=== PATIENT | female | born 1960 | race Caucasian/White ===

== ENCOUNTER 2017-05-24 20:47 | Emergency (ER) | payer BC, OTHER ==
[2017-05-24] MEDS ORDERED: Ibuprofen TAB* 600 MG PO ONE (20:53)
[2017-05-24] MEDS ORDERED: NS 0.9% 1000 ML* 1,000 ML IV ONE (21:24)
[2017-05-24] MEDS ORDERED: Clindamycin CAP* 150 MG PO ONE (21:25)
--- NOTE | 2017-05-24 21:39 | UC ---
angie Lyons Timothy, scribed for Velma Johnson MD on 05/24/17 at 2121 . HPI Febrile Illness - HPI Summary HPI Summary: Claribel Heart is a 56 yo female presenting to [facility] with fever for the past 30 hours with 7/10 myalgia, fatigue, and 2 bug bites behind her left knee which has increased erythema. Pt states bites present x 2-3 days. Pt states starting yesterday had fatiigue and body aches. Pt reports tactile temp today. No analgesia, antipyretic taken. Pt denies cp, sob, N/V, changes in urine. She notes her has MRSA. Pt denies known tick exposure. Her MHx includes cholecystectomy. Pt medication list reviewed this visit. - History of Current Complaint Chief Complaint: UCGeneralIllness Time Seen by Provider: 05/24/17 21:13 Hx Obtained From: Patient Onset/Duration: Started Days Ago - yesterday - bite 2-3 days ago, Still Present Timing: Constant Temperature: 103.5 F Initial Severity: Moderate Current Severity: Moderate Pain Intensity: 7 Pain Scale Used: 0-10 Numeric Associated Signs and Symptoms: Headache, Myalgia, Other: - bug bites - Allergy/Home Medications Allergies/Adverse Reactions: Allergies Allergy/AdvReac Type Severity Reaction Status Date / Time Diphenhydramine Allergy See Comment Verified 05/24/17 20:54 [From Benadryl] Home Medications: Home Medications Calcium 500 mg PO 05/24/17 [History] Multiple Vitamin [Multivitamins] 1 cap PO 05/24/17 [History] PMH/Surg Hx/FS Hx/Imm Hx Previously Healthy: Yes - Surgical History Surgery Procedure, Year, and Place: GB REMOVED Infectious Disease History: No - with MRSA Infectious Disease History: Denies: Traveled Outside the [place] in Last 30 Days - Family History Known Family History: Positive: Cardiac Disease, Hypertension Negative: Diabetes - Social History Occupation: Employed Full-time Lives: With Family Alcohol Use: Rare Substance Use Type: Reports: None Smoking Status (MU): Never Smoked Tobacco Review of Systems Constitutional: Fever, Fatigue Skin: Other - erythema posterior left knee s/p insect bites Eyes: Negative ENT: Negative Respiratory: Negative Cardiovascular: Negative Gastrointestinal: Negative Genitourinary: Negative Motor: Negative Neurovascular: Negative Musculoskeletal: Myalgia Neurological: Headache Psychological: Negative All Other Systems Reviewed And Are Negative: Yes Physical Exam Triage Information Reviewed: Yes Appearance: Well-Appearing - A+Ox3 tired appearing appropriate, No Pain Distress , Well-Nourished Vital Signs: Initial Vital Signs Temp 103.5 F 05/24/17 20:51 Pulse 114 05/24/17 20:51 Resp 18 05/24/17 20:51 BP 182/99 05/24/17 20:51 Pulse Ox 98 05/24/17 20:51 Vital Signs Reviewed: Yes Eye Exam: Normal ENT Exam: Normal ENT: Positive: Normal ENT inspection, Hearing grossly normal, Pharynx normal, TMs normal Dental Exam: Normal Neck exam: Normal Neck: Positive: Supple, Nontender, No Lymphadenopathy Respiratory Exam: Normal Respiratory: Positive: Chest non-tender, Lungs clear, Normal breath sounds, No respiratory distress, No accessory muscle use Cardiovascular Exam: Normal Cardiovascular: Positive: RRR, No Murmur Abdominal Exam: Normal Abdomen Description: Positive: Nontender, No Organomegaly, Soft Bowel Sounds: Positive: Present Musculoskeletal Exam: Normal Neurological Exam: Normal Psychological Exam: Normal Psychological: Positive: Normal Response To Family Skin: Positive: Other - left popliteal fossa- pt with 3x4 cm area of erythema with 2 apparant separate wounds c/w insect bite. no drainage. no fluctuance. No induration warmth, well demarcated Re-Evaluation - Re-Evaluation First Eval Re-Evaluation Time: 22:13 Change: Improved Comment: Pt states she feels improved and is not as fatigued. She is feeling slightly nauseous however after po clinda. will give po water - declined crackers Second Eval Re-Evaluation Time: 22:19 Change: Improved Comment: Discussed decreased temperature with Pt.Pt reports feeling markedly improved. erythema demarcated. Will discharge home Rx clind. motrin/apap. hydrated recheck 48 hours. return precautions discussed Course/Dx - Course Assessment/Plan: Claribel Heart is a 56 yo female presenting to [facility] with fever, 7/ 10 myalgia, fatigue, and AR[place] for the past 2 days, with two white bug bites behind her knees bilaterally for the past 4 days. Pt medication list reviewed this visit. In the urgent care course she received iburprofen for management of her fever and cleocin. After clinical examination, she will be discharged home with appropriate instructions and follow up. Discharge - Discharge Plan Condition: Stable Disposition: HOME Prescriptions: Clindamycin Cap(NF) [Cleocin 300 mg Cap(NF)] 300 mg PO TID #30 cap Patient Education Materials: Cellulitis (ED), Fever in Adults (ED) Referrals: Derik Leon MD [Primary Care Provider] - 2 Days Additional Instructions: Stay well hydrated. drink plenty of non-alcoholic, non-caffinated beverages - Take antibiotics as prescribed until gone. These will likely cause diarrhea - eating yogurt or taking pro-biotics (found in the medicine aisle) may decrease diarrhea - Alternate ibuprofen (Advil, Motrin)600mg and tylenol (acetaminophen) every 3 hours for pain or fever. take with food. Do NOT take for more than 4-5 days - Monitor you wound for signs of worsening infection - reddness, red streaking, drainage, odor, pus -call your doctor or go directly to the ED with any questions or concerns - Call your doctor to schedule a recheck appointment. If your symptoms worsen, you have increased pain, increased reddness, uncontrolled fever - call 911 or go to the emergency department The documentation as recorded by the angie castro Timothy accurately reflects the service I personally performed and the decisions made by me, Velma Johnson MD.
[2017-05-24 22:45] VITALS: BP 164/91
[2017-05-25 11:42] LABS: Albumin 4.5 g/dL (3.2-5.2); BUN/Creatinine Ratio 12.6 (8-20); Calcium 9.6 mg/dL (8.6-10.3); EGFR African American 86.9 (>60); EGFR Non-African American 67.6 (>60); Potassium 3.8 mmol/L (3.5-5.0); Total Bilirubin 0.5 mg/dL (0.2-1.0); Total Protein 7.5 g/dL (6.4-8.9)
== END 2017-05-24 22:46 | disposition home or self-care (01) ==
LOC: UCEAST 20:47
DX: R50.9 Fever, unspecified (principal); S80.862A Insect bite (nonvenomous), left lower leg, initial encounter; L03.116 Cellulitis of left lower limb; W57.XXXA Bitten or stung by nonvenomous insect and other nonvenomous arthropods, initial encounter; Y93.9 Activity, unspecified; Y92.9 Unspecified place or not applicable; R53.83 Other fatigue; M79.1 Myalgia; R51 Headache; Z90.49 Acquired absence of other specified parts of digestive tract
CPT/HCPCS: 36415; 80053; 86618; 96360; 99212; A9270-GY; G0463

== ENCOUNTER 2020-01-13 19:31 | Emergency (ER) | payer BC ==
--- NOTE | 2020-01-13 21:41 | ED ---
Upper Extremity Pain - HPI Summary HPI Summary: 59 year old female presents with left shoulder injury today. States she fell off a horse. States that she was wearing a helmet and her visor when into her lip. She had some numbness of her lip that resolved. Denies any loose teeth. No jaw pain. No headaches. She was nauseous but no vomiting. she just has pain over the proximal shoulder. no clavicle pain. She is right-handed. 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 - History of Current Complaint Chief Complaint: Omer Stated Complaint: FALL OFF HORSE SHOULDER INJURY Time Seen by Provider: 01/13/20 21:21 - Allergies/Home Medications Allergies/Adverse Reactions: Allergies Allergy/AdvReac Type Severity Reaction Status Date / Time MS Diphenhydramine Allergy See Comment Verified 01/13/20 19:38 [From Benadryl] Home Medications: Home Medications Calcium 500 mg PO 05/24/17 [History] Clindamycin Cap(NF) [Clindamycin Cap 300 mg Cap(NF)] 300 mg PO TID #30 cap 05/24 [Rx] Multivitamin [Multivitamins] 1 cap PO 05/24/17 [History] HYDROcodone/ACETAMIN 5-325 MG* [[place] 5-325 TAB*] 1 tab PO Q6H PRN #16 tab MDD 4 01/13/20 [Rx] PMH/Surg Hx/FS Hx/Imm Hx Endocrine/Hematology History: Denies: Hx Anticoagulant Therapy Cardiovascular History: Denies: Hx Pacemaker/ICD - Surgical History Surgery Procedure, Year, and Place: GB REMOVED Infectious Disease History: No Infectious Disease History: Denies: Traveled Outside the [place] in Last 30 Days - Family History Known Family History: Positive: Cardiac Disease, Hypertension Negative: Diabetes - Social History Alcohol Use: Rare Substance Use Type: Reports: None Smoking Status (MU): Never Smoked Tobacco Review of Systems Negative: Fever Negative: Chest Pain Negative: Shortness Of Breath Positive: Myalgia - left All Other Systems Reviewed And Are Negative: Yes Physical Exam Triage Information Reviewed: Yes Vital Signs On Initial Exam: Initial Vitals Temp Pulse Resp BP Pulse Ox 99.1 F 74 16 179/94 99 01/13/20 19:33 01/13/20 19:33 01/13/20 19:33 01/13/20 19:33 01/13/20 19:33 Vital Signs Reviewed: Yes Appearance: Positive: Well-Appearing Skin: Positive: Warm, Dry Head/Face: Positive: Normal Head/Face Inspection Eyes: Positive: Normal, Conjunctiva Clear ENT: Positive: Pharynx normal Respiratory/Lung Sounds: Positive: Clear to Auscultation, Breath Sounds Present Cardiovascular: Positive: Normal, RRR Musculoskeletal: Positive: Limited @ - left shoulder, Other - good pulses, good variety performer strength Neurological: Positive: Normal Psychiatric: Positive: Normal Procedures - Sedation Patient Received Moderate/Deep Sedation with Procedure: No Diagnostics - Vital Signs Vital Signs Temp Pulse Resp BP Pulse Ox 01/13/20 19:33 99.1 F 74 16 179/94 99 - Laboratory Lab Statement: Any lab studies that have been ordered have been reviewed, and results considered in the medical decision making process. - Radiology shoulder Radiology Interpretation Completed By: ED Physician Summary of Radiographic Findings: proximal humerus fracture Course/Dx - Course Course Of Treatment: 59 year old female presents with left shoulder injury today. States she fell off a horse. States that she was wearing a helmet and her visor when into her lip. She had some numbness of her lip that resolved. Denies any loose teeth. No jaw pain. No headaches. She was nauseous but no vomiting. she just has pain over the proximal shoulder. no clavicle pain. She is right-handed. 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 On exam tenderness over left shoulder. Neurovascular intact. X-ray shows a proximal humerus fracture. Gave sling. gave short course of pain medication. Will have follow-up with orthopedic. Patient understands agrees plan. - Diagnoses Differential Diagnosis/HQI/PQRI: Positive: Fracture (Closed), Strain, Sprain Provider Diagnoses: Left humeral fracture Discharge ED - Sign-Out/Discharge Documenting (check all that apply): Patient Departure - Discharge Plan Condition: Good Disposition: HOME Prescriptions: HYDROcodone/ACETAMIN 5-325 MG* [[place] 5-325 TAB*] 1 tab PO Q6H PRN #16 tab MDD 4 PRN Reason: Pain - Severe Patient Education Materials: Proximal Humerus Fracture (ED) Referrals: Dafne Reynolds PA [Primary Care Provider] - Emerson Javier MD [Medical Doctor] - Additional Instructions: Keep elbow in sling Call ortho office tomorrow to set up appointment for follow up Use ibuprofen for pain every 6 hours and use norco for breakthrough pain every 6 hours Ice Return to ED if develop any new or worsening symptoms - Billing Disposition and Condition Condition: GOOD Disposition: Home
[2020-01-13] MEDS ORDERED: HYDROcodone/ACETAMIN 5-325 MG* 1 TAB PO ONE (21:42)
[2020-01-13 22:22] VITALS: BP 142/88
== END 2020-01-13 22:20 | disposition home or self-care (01) ==
LOC: ED 19:31
DX: S42.212A Unspecified displaced fracture of surgical neck of left humerus, initial encounter for closed fracture (principal); V80.010A Animal-rider injured by fall from or being thrown from horse in noncollision accident, initial encounter; Y93.52 Activity, horseback riding; Y92.9 Unspecified place or not applicable; Z88.8 Allergy status to other drugs, medicaments and biological substances
CPT/HCPCS: 99282